=== PATIENT | male | born 1940 | race Caucasian/White ===

== ENCOUNTER 2016-03-15 08:17 | Outpatient (RCR) | payer MEDICARE, OTHER ==
[~2016-03-15 08:17] MED LIST: ASPI-860 PO; ASPI325T4 PO; CARV3.12T PO; CHOL200025 PO; MAGN250T PO; MULT-35 PO; OMG1KC PO; POTA15TA9 PO; ROSU40TA PO; VITA1CAP PO
[2016-03-15 09:21] LABS: MAGNESIUM* 2.1 mg/dL (1.6-2.3); PHOSPHORUS 2.4 mg/dL (2.4-4.9)
[2016-05-03 08:30] LABS: BASOPHILS % (AUTO) 1 % (0-2); EOSINOPHILS # (AUTO) 0.4 10^3uL; EOSINOPHILS % (AUTO) 6 % (0-4); LYMPHOCYTES # (AUTO) 1.4 X10^3; MEAN CORPUSCULAR HGB CONC 33.6 g/dL (31.0-37.0); MEAN CORPUSCULAR VOLUME 97 FL (80-100); MONOCYTES # (AUTO) 0.6 X10^3; MONOCYTES % (AUTO) 8 % (3-11); NEUTROPHILS # (AUTO) 4.5 X10^3; NEUTROPHILS % (AUTO) 64 % (51-67); PLATELET COUNT 172 10^3uL (150-450); WHITE BLOOD COUNT 6.95 10^3uL (4.0-11.0)
[2016-05-03 08:50] LABS: ALBUMIN 3.7 g/dL (3.4-5.0); ANION GAP 15.5 MEQ/L (3-15); PHOSPHORUS 3.8 mg/dL (2.4-4.9)
[2016-05-03 09:04] LABS: MEAN CORPUSCULAR HEMOGLOBIN 32.7 PG (26.0-34.0)
== END 2016-06-13 | disposition home or self-care (01) ==
LOC: LAB 08:17 → EDSTATUS 03-22 11:30
PROVIDERS: ATTEND Internal Medicine Nephrology
DX: N17.8 Other acute kidney failure (principal); N18.3 Chronic kidney disease, stage 3 (moderate); R80.8 Other proteinuria; R31.0 Gross hematuria
CPT/HCPCS: 36415; 80069; 82360; 83735; 83970; 84100; 84550; 85025

== ENCOUNTER 2016-04-05 08:03 | Outpatient (RCR) | payer MEDICARE, OTHER ==
[2016-04-05 08:21] LABS: MEAN CORPUSCULAR HGB CONC 33.2 g/dL (31.0-37.0); MEAN CORPUSCULAR VOLUME 97 FL (80-100); PLATELET COUNT 231 10^3uL (150-450); WHITE BLOOD COUNT 6.06 10^3uL (4.0-11.0)
[2016-04-05 08:27] LABS: BAND NEUTROPHILS % 0 % (0-6); EOSINOPHILS % 0 % (0-4); LYMPHOCYTES # 0.6 #; MEAN CORPUSCULAR HEMOGLOBIN 32.4 PG (26.0-34.0); MONOCYTES % 0 % (3-11); SEGMENTED NEUTROPHILS % 90 % (51-67); TOTAL CELLS COUNTED 100
[2016-04-05 08:28] LABS: RBC MORPH NORMAL (NORMAL)
[2016-04-05 08:37] LABS: ALBUMIN 3.7 g/dL (3.4-5.0); ANION GAP 20.4 MEQ/L (3-15); CALCULATED IONIZED CALCIUM 4.2 mg/dL (3.8-4.6); TOTAL PROTEIN 7.8 g/dL (6.4-8.5)
[2016-04-05 08:45] LABS: MAGNESIUM* 1.9 mg/dL (1.6-2.3)
[2016-04-12 08:48] LABS: MEAN CORPUSCULAR HEMOGLOBIN 32.8 PG (26.0-34.0); MEAN CORPUSCULAR HGB CONC 32.7 g/dL (31.0-37.0); MEAN CORPUSCULAR VOLUME 100 FL (80-100); MEAN PLATELET VOLUME 10.5 FL (6.0-9.5); PLATELET COUNT 137 10^3uL (150-450); WHITE BLOOD COUNT 5.82 10^3uL (4.0-11.0)
[2016-04-12 08:51] LABS: BAND NEUTROPHILS % 4 % (0-6); EOSINOPHILS % 0 % (0-4); LYMPHOCYTES # 1.2 #; MONOCYTES % 0 % (3-11); RBC MORPH NORMAL (NORMAL); SEGMENTED NEUTROPHILS % 74 % (51-67); TOTAL CELLS COUNTED 100
[2016-04-26 08:23] LABS: BASOPHILS % (AUTO) 1 % (0-2); EOSINOPHILS # (AUTO) 0.2 10^3uL; EOSINOPHILS % (AUTO) 2 % (0-4); MEAN CORPUSCULAR HGB CONC 33.3 g/dL (31.0-37.0); MONOCYTES # (AUTO) 0.9 X10^3; MONOCYTES % (AUTO) 10 % (3-11); NEUTROPHILS % (AUTO) 66 % (51-67); PLATELET COUNT 175 10^3uL (150-450); WHITE BLOOD COUNT 9.19 10^3uL (4.0-11.0)
[2016-04-26 08:25] LABS: MEAN CORPUSCULAR HEMOGLOBIN 32.8 PG (26.0-34.0); MEAN CORPUSCULAR VOLUME 98 FL (80-100)
[2016-04-26 09:04] LABS: ALBUMIN 3.6 g/dL (3.4-5.0); ANION GAP 17.6 MEQ/L (3-15); CALCULATED IONIZED CALCIUM 4.2 mg/dL (3.8-4.6); TOTAL PROTEIN 7.2 g/dL (6.4-8.5)
[2016-05-10 08:19] LABS: MEAN CORPUSCULAR HGB CONC 33.4 g/dL (31.0-37.0); MEAN PLATELET VOLUME 8.9 FL (6.0-9.5); PLATELET COUNT 142 10^3uL (150-450); WHITE BLOOD COUNT 4.85 10^3uL (4.0-11.0)
[2016-05-10 08:20] LABS: MEAN CORPUSCULAR HEMOGLOBIN 32.7 PG (26.0-34.0); MEAN CORPUSCULAR VOLUME 98 FL (80-100)
[2016-05-10 08:24] LABS: BAND NEUTROPHILS % 0 % (0-6); EOSINOPHILS % 4 % (0-4); LYMPHOCYTES # 1.2 #; MONOCYTES # 0.2 #; MONOCYTES % 6 % (3-11); RBC MORPH NORMAL (NORMAL); SEGMENTED NEUTROPHILS % 65 % (51-67); TOTAL CELLS COUNTED 100
[2016-05-10 08:58] LABS: ALBUMIN 3.3 g/dL (3.4-5.0); CALCULATED IONIZED CALCIUM 4.3 mg/dL (3.8-4.6); TOTAL PROTEIN 6.9 g/dL (6.4-8.5)
[2016-05-17 08:40] LABS: MEAN CORPUSCULAR VOLUME 96 FL (80-100); MEAN PLATELET VOLUME 9.1 FL (6.0-9.5); PLATELET COUNT 162 10^3uL (150-450); WHITE BLOOD COUNT 6.49 10^3uL (4.0-11.0)
[2016-05-17 08:47] LABS: ALBUMIN 3.8 g/dL (3.4-5.0); ANION GAP 17.6 MEQ/L (3-15); CALCULATED IONIZED CALCIUM 4.3 mg/dL (3.8-4.6); TOTAL PROTEIN 6.9 g/dL (6.4-8.5)
[2016-05-17 08:59] LABS: BAND NEUTROPHILS % 0 % (0-6); MEAN CORPUSCULAR HEMOGLOBIN 31.7 PG (26.0-34.0); SEGMENTED NEUTROPHILS % 68 % (51-67)
[2016-05-17 09:00] LABS: EOSINOPHILS % 4 % (0-4); LYMPHOCYTES # 1.3 #; MONOCYTES # 0.4 #; MONOCYTES % 7 % (3-11); RBC MORPH NORMAL (NORMAL); TOTAL CELLS COUNTED 100
[2016-05-24 08:27] LABS: BASOPHILS % (AUTO) 1 % (0-2); EOSINOPHILS # (AUTO) 0.4 10^3uL; EOSINOPHILS % (AUTO) 6 % (0-4); LYMPHOCYTES # (AUTO) 1.9 X10^3; MEAN CORPUSCULAR HGB CONC 32.8 g/dL (31.0-37.0); MEAN CORPUSCULAR VOLUME 97 FL (80-100); MEAN PLATELET VOLUME 9.1 FL (6.0-9.5); MONOCYTES # (AUTO) 0.6 X10^3; MONOCYTES % (AUTO) 9 % (3-11); NEUTROPHILS # (AUTO) 3.7 X10^3; NEUTROPHILS % (AUTO) 55 % (51-67); PLATELET COUNT 168 10^3uL (150-450); WHITE BLOOD COUNT 6.72 10^3uL (4.0-11.0)
[2016-05-24 08:40] LABS: MEAN CORPUSCULAR HEMOGLOBIN 31.7 PG (26.0-34.0)
[2016-05-24 08:49] LABS: ALBUMIN 3.9 g/dL (3.4-5.0); ANION GAP 17.1 MEQ/L (3-15); CALCULATED IONIZED CALCIUM 4.2 mg/dL (3.8-4.6); TOTAL PROTEIN 7.1 g/dL (6.4-8.5)
[2016-05-31 08:24] LABS: BASOPHILS % (AUTO) 1 % (0-2); EOSINOPHILS # (AUTO) 0.3 10^3uL; EOSINOPHILS % (AUTO) 4 % (0-4); LYMPHOCYTES # (AUTO) 3.2 X10^3; MEAN CORPUSCULAR HEMOGLOBIN 31.2 PG (26.0-34.0); MEAN CORPUSCULAR HGB CONC 32.3 g/dL (31.0-37.0); MEAN CORPUSCULAR VOLUME 97 FL (80-100); MONOCYTES # (AUTO) 1.2 X10^3; MONOCYTES % (AUTO) 13 % (3-11); NEUTROPHILS # (AUTO) 3.8 X10^3; NEUTROPHILS % (AUTO) 45 % (51-67); PLATELET COUNT 140 10^3uL (150-450); WHITE BLOOD COUNT 8.57 10^3uL (4.0-11.0)
[2016-05-31 08:37] LABS: ANION GAP 20.4 MEQ/L (3-15); CALCULATED IONIZED CALCIUM 4.2 mg/dL (3.8-4.6); TOTAL PROTEIN 7.3 g/dL (6.4-8.5)
[2016-06-07 08:36] LABS: BASOPHILS % (AUTO) 0 % (0-2); EOSINOPHILS # (AUTO) 0.4 10^3uL; EOSINOPHILS % (AUTO) 5 % (0-4); LYMPHOCYTES # (AUTO) 2.7 X10^3; MEAN CORPUSCULAR HEMOGLOBIN 31.1 PG (26.0-34.0); MEAN CORPUSCULAR VOLUME 94 FL (80-100); MEAN PLATELET VOLUME 9.3 FL (6.0-9.5); MONOCYTES # (AUTO) 0.6 X10^3; MONOCYTES % (AUTO) 9 % (3-11); NEUTROPHILS # (AUTO) 3.6 X10^3; NEUTROPHILS % (AUTO) 49 % (51-67); PLATELET COUNT 176 10^3uL (150-450); WHITE BLOOD COUNT 7.29 10^3uL (4.0-11.0)
[2016-06-07 09:11] LABS: CALCULATED IONIZED CALCIUM 4.1 mg/dL (3.8-4.6); TOTAL PROTEIN 7.5 g/dL (6.4-8.5)
[2016-06-07 09:25] LABS: ANION GAP 18.5 MEQ/L (3-15)
[2016-06-14 08:20] LABS: BASOPHILS % (AUTO) 1 % (0-2); EOSINOPHILS # (AUTO) 0.3 10^3uL; EOSINOPHILS % (AUTO) 4 % (0-4); LYMPHOCYTES # (AUTO) 3.1 X10^3; MEAN CORPUSCULAR HEMOGLOBIN 30.9 PG (26.0-34.0); MEAN CORPUSCULAR VOLUME 94 FL (80-100); MEAN PLATELET VOLUME 9.5 FL (6.0-9.5); MONOCYTES # (AUTO) 0.9 X10^3; MONOCYTES % (AUTO) 11 % (3-11); NEUTROPHILS # (AUTO) 4.3 X10^3; NEUTROPHILS % (AUTO) 50 % (51-67); PLATELET COUNT 206 10^3uL (150-450); WHITE BLOOD COUNT 8.72 10^3uL (4.0-11.0)
[2016-06-14 08:27] LABS: ALBUMIN 4.1 g/dL (3.4-5.0); ANION GAP 19.5 MEQ/L (3-15); CALCULATED IONIZED CALCIUM 4.3 mg/dL (3.8-4.6); TOTAL PROTEIN 7.5 g/dL (6.4-8.5)
[2016-06-21 08:08] LABS: BASOPHILS % (AUTO) 1 % (0-2); EOSINOPHILS # (AUTO) 0.3 10^3uL; EOSINOPHILS % (AUTO) 4 % (0-4); MEAN CORPUSCULAR HEMOGLOBIN 30.6 PG (26.0-34.0); MEAN CORPUSCULAR HGB CONC 32.8 g/dL (31.0-37.0); MEAN CORPUSCULAR VOLUME 94 FL (80-100); MEAN PLATELET VOLUME 9.4 FL (6.0-9.5); MONOCYTES # (AUTO) 0.8 X10^3; MONOCYTES % (AUTO) 10 % (3-11); NEUTROPHILS # (AUTO) 4.6 X10^3; NEUTROPHILS % (AUTO) 59 % (51-67); PLATELET COUNT 173 10^3uL (150-450); WHITE BLOOD COUNT 7.72 10^3uL (4.0-11.0)
[2016-06-21 08:56] LABS: CALCULATED IONIZED CALCIUM 4.2 mg/dL (3.8-4.6); TOTAL PROTEIN 7.7 g/dL (6.4-8.5)
== END 2016-07-04 | disposition home or self-care (01) ==
LOC: LAB 08:03
PROVIDERS: ATTEND Internal Medicine Hematology & Oncology
DX: C65.2 Malignant neoplasm of left renal pelvis (principal); C78.00 Secondary malignant neoplasm of unspecified lung
CPT/HCPCS: 36415; 80053; 82378; 83615; 83735; 85007; 85025; 85027

== ENCOUNTER 2016-06-28 08:14 | Outpatient (RCR) | payer MEDICARE, OTHER ==
[2016-06-28 09:02] LABS: BASOPHILS % (AUTO) 1 % (0-2); EOSINOPHILS # (AUTO) 0.3 10^3uL; EOSINOPHILS % (AUTO) 4 % (0-4); LYMPHOCYTES # (AUTO) 1.5 X10^3; MEAN CORPUSCULAR HEMOGLOBIN 30.6 PG (26.0-34.0); MEAN CORPUSCULAR HGB CONC 33.3 g/dL (31.0-37.0); MEAN CORPUSCULAR VOLUME 92 FL (80-100); MEAN PLATELET VOLUME 9.9 FL (6.0-9.5); MONOCYTES # (AUTO) 0.6 X10^3; MONOCYTES % (AUTO) 10 % (3-11); NEUTROPHILS # (AUTO) 3.9 X10^3; NEUTROPHILS % (AUTO) 61 % (51-67); PLATELET COUNT 202 10^3uL (150-450); WHITE BLOOD COUNT 6.38 10^3uL (4.0-11.0)
[2016-06-28 09:09] LABS: ALBUMIN 3.9 g/dL (3.4-5.0); ANION GAP 20.4 MEQ/L (3-15); CALCULATED IONIZED CALCIUM 4.3 mg/dL (3.8-4.6); TOTAL PROTEIN 7.3 g/dL (6.4-8.5)
[2016-07-05 08:06] LABS: BASOPHILS % (AUTO) 1 % (0-2); EOSINOPHILS # (AUTO) 0.3 10^3uL; EOSINOPHILS % (AUTO) 4 % (0-4); LYMPHOCYTES # (AUTO) 1.5 X10^3; MEAN CORPUSCULAR HEMOGLOBIN 30.7 PG (26.0-34.0); MEAN CORPUSCULAR HGB CONC 32.9 g/dL (31.0-37.0); MEAN CORPUSCULAR VOLUME 93 FL (80-100); MEAN PLATELET VOLUME 9.1 FL (6.0-9.5); MONOCYTES # (AUTO) 0.8 X10^3; MONOCYTES % (AUTO) 11 % (3-11); NEUTROPHILS # (AUTO) 4.8 X10^3; NEUTROPHILS % (AUTO) 64 % (51-67); PLATELET COUNT 171 10^3uL (150-450); WHITE BLOOD COUNT 7.47 10^3uL (4.0-11.0)
[2016-07-05 08:22] LABS: ALBUMIN 3.8 g/dL (3.4-5.0); ANION GAP 16.8 MEQ/L (3-15); CALCULATED IONIZED CALCIUM 4.2 mg/dL (3.8-4.6); TOTAL PROTEIN 7.3 g/dL (6.4-8.5)
[2016-07-12 08:48] LABS: BASOPHILS % (AUTO) 1 % (0-2); EOSINOPHILS # (AUTO) 0.3 10^3uL; EOSINOPHILS % (AUTO) 4 % (0-4); LYMPHOCYTES # (AUTO) 1.6 X10^3; MEAN CORPUSCULAR HEMOGLOBIN 30.7 PG (26.0-34.0); MEAN CORPUSCULAR HGB CONC 32.9 g/dL (31.0-37.0); MEAN CORPUSCULAR VOLUME 93 FL (80-100); MONOCYTES # (AUTO) 0.8 X10^3; MONOCYTES % (AUTO) 11 % (3-11); NEUTROPHILS # (AUTO) 4.6 X10^3; NEUTROPHILS % (AUTO) 62 % (51-67); PLATELET COUNT 162 10^3uL (150-450); WHITE BLOOD COUNT 7.33 10^3uL (4.0-11.0)
[2016-07-12 09:20] LABS: ALBUMIN 3.2 g/dL (3.4-5.0); ANION GAP 17.2 MEQ/L (3-15); CALCULATED IONIZED CALCIUM 4.3 mg/dL (3.8-4.6); TOTAL PROTEIN 6.2 g/dL (6.4-8.5)
[2016-07-19 08:28] LABS: BASOPHILS % (AUTO) 1 % (0-2); EOSINOPHILS # (AUTO) 0.4 10^3uL; EOSINOPHILS % (AUTO) 5 % (0-4); LYMPHOCYTES # (AUTO) 1.4 X10^3; MEAN CORPUSCULAR HEMOGLOBIN 30.9 PG (26.0-34.0); MEAN CORPUSCULAR HGB CONC 33.5 g/dL (31.0-37.0); MEAN CORPUSCULAR VOLUME 92 FL (80-100); MEAN PLATELET VOLUME 9.2 FL (6.0-9.5); MONOCYTES % (AUTO) 13 % (3-11); NEUTROPHILS # (AUTO) 4.7 X10^3; NEUTROPHILS % (AUTO) 63 % (51-67); PLATELET COUNT 208 10^3uL (150-450); WHITE BLOOD COUNT 7.47 10^3uL (4.0-11.0)
[2016-07-19 08:39] LABS: ALBUMIN 3.6 g/dL (3.4-5.0); ANION GAP 16.7 MEQ/L (3-15); CALCULATED IONIZED CALCIUM 4.1 mg/dL (3.8-4.6); TOTAL PROTEIN 7.1 g/dL (6.4-8.5)
[2016-07-26 08:36] LABS: BASOPHILS % (AUTO) 1 % (0-2); EOSINOPHILS # (AUTO) 0.4 10^3uL; EOSINOPHILS % (AUTO) 6 % (0-4); LYMPHOCYTES # (AUTO) 1.2 X10^3; MEAN CORPUSCULAR HEMOGLOBIN 30.6 PG (26.0-34.0); MEAN CORPUSCULAR HGB CONC 33.6 g/dL (31.0-37.0); MEAN CORPUSCULAR VOLUME 91 FL (80-100); MEAN PLATELET VOLUME 9.2 FL (6.0-9.5); MONOCYTES # (AUTO) 0.9 X10^3; MONOCYTES % (AUTO) 12 % (3-11); NEUTROPHILS # (AUTO) 4.8 X10^3; NEUTROPHILS % (AUTO) 65 % (51-67); PLATELET COUNT 231 10^3uL (150-450); WHITE BLOOD COUNT 7.37 10^3uL (4.0-11.0)
[2016-07-26 09:09] LABS: ALBUMIN 3.3 g/dL (3.4-5.0); ANION GAP 17.2 MEQ/L (3-15); CALCULATED IONIZED CALCIUM 4.4 mg/dL (3.8-4.6); TOTAL PROTEIN 6.4 g/dL (6.4-8.5)
[2016-08-02 08:33] LABS: BASOPHILS % (AUTO) 1 % (0-2); EOSINOPHILS # (AUTO) 0.4 10^3uL; EOSINOPHILS % (AUTO) 6 % (0-4); LYMPHOCYTES # (AUTO) 1.4 X10^3; MEAN CORPUSCULAR HGB CONC 33.2 g/dL (31.0-37.0); MEAN CORPUSCULAR VOLUME 90 FL (80-100); MEAN PLATELET VOLUME 8.8 FL (6.0-9.5); MONOCYTES % (AUTO) 14 % (3-11); NEUTROPHILS % (AUTO) 59 % (51-67); PLATELET COUNT 206 10^3uL (150-450)
[2016-08-02 08:46] LABS: ALBUMIN 3.6 g/dL (3.4-5.0); ANION GAP 16.1 MEQ/L (3-15); CALCULATED IONIZED CALCIUM 4.2 mg/dL (3.8-4.6); TOTAL PROTEIN 7.2 g/dL (6.4-8.5)
[2016-08-09 08:08] LABS: BASOPHILS % (AUTO) 1 % (0-2); EOSINOPHILS # (AUTO) 0.6 10^3uL; EOSINOPHILS % (AUTO) 5 % (0-4); LYMPHOCYTES # (AUTO) 2.2 X10^3; MEAN CORPUSCULAR HEMOGLOBIN 30.1 PG (26.0-34.0); MEAN CORPUSCULAR HGB CONC 33.3 g/dL (31.0-37.0); MEAN CORPUSCULAR VOLUME 90 FL (80-100); MEAN PLATELET VOLUME 9.5 FL (6.0-9.5); MONOCYTES # (AUTO) 1.1 X10^3; MONOCYTES % (AUTO) 11 % (3-11); NEUTROPHILS # (AUTO) 6.2 X10^3; NEUTROPHILS % (AUTO) 60 % (51-67); PLATELET COUNT 193 10^3uL (150-450)
[2016-08-09 08:41] LABS: ALBUMIN 3.4 g/dL (3.4-5.0); ANION GAP 17.9 MEQ/L (3-15); CALCULATED IONIZED CALCIUM 4.4 mg/dL (3.8-4.6); TOTAL PROTEIN 6.7 g/dL (6.4-8.5)
[2016-08-13] MEDS ORDERED: OMEP40CA36 PO (11:25)
[2016-08-13] MEDS ORDERED: METO-270 PO (11:25)
[2016-08-13] MEDS ORDERED: FRSM20T PO (11:25)
[2016-08-13] MEDS ORDERED: AMIO200T2 PO (11:25)
[2016-08-13] MEDS ORDERED: MGX400T PO (11:25)
[2016-08-13] MEDS ORDERED: PREG50C PO (11:25)
[2016-08-13] MEDS ORDERED: LISI2.5T PO (11:25)
[2016-08-13] MEDS ORDERED: APIX5TAB PO (11:25)
[2016-08-13] MEDS ORDERED: METO25TA2 PO (16:04)
[2016-08-13] MEDS ORDERED: CYAN10006 PO (16:04)
[2016-08-13] MEDS ORDERED: NFLYR75C PO (16:04)
[2016-08-13] MEDS ORDERED: MULT-517 PO (16:59)
[2016-08-23 08:11] LABS: BASOPHILS % (AUTO) 1 % (0-2); EOSINOPHILS # (AUTO) 0.6 10^3uL; EOSINOPHILS % (AUTO) 7 % (0-4); LYMPHOCYTES # (AUTO) 1.7 X10^3; MEAN CORPUSCULAR HEMOGLOBIN 28.6 PG (26.0-34.0); MEAN CORPUSCULAR HGB CONC 31.9 g/dL (31.0-37.0); MEAN CORPUSCULAR VOLUME 90 FL (80-100); MEAN PLATELET VOLUME 8.9 FL (6.0-9.5); MONOCYTES # (AUTO) 0.9 X10^3; MONOCYTES % (AUTO) 10 % (3-11); NEUTROPHILS # (AUTO) 5.6 X10^3; NEUTROPHILS % (AUTO) 62 % (51-67); PLATELET COUNT 228 10^3uL (150-450); WHITE BLOOD COUNT 8.94 10^3uL (4.0-11.0)
[2016-08-23 08:22] LABS: ALBUMIN 3.8 g/dL (3.4-5.0); ANION GAP 17.8 MEQ/L (3-15); CALCULATED IONIZED CALCIUM 4.2 mg/dL (3.8-4.6)
[2016-08-30 08:10] LABS: BASOPHILS % (AUTO) 1 % (0-2); EOSINOPHILS # (AUTO) 0.5 10^3uL; EOSINOPHILS % (AUTO) 8 % (0-4); LYMPHOCYTES # (AUTO) 1.5 X10^3; MEAN CORPUSCULAR HEMOGLOBIN 28.2 PG (26.0-34.0); MEAN CORPUSCULAR HGB CONC 31.6 g/dL (31.0-37.0); MEAN CORPUSCULAR VOLUME 89 FL (80-100); MEAN PLATELET VOLUME 8.9 FL (6.0-9.5); MONOCYTES # (AUTO) 0.8 X10^3; MONOCYTES % (AUTO) 12 % (3-11); NEUTROPHILS # (AUTO) 3.9 X10^3; NEUTROPHILS % (AUTO) 57 % (51-67); PLATELET COUNT 183 10^3uL (150-450); WHITE BLOOD COUNT 6.86 10^3uL (4.0-11.0)
[2016-08-30 08:38] LABS: ALBUMIN 3.3 g/dL (3.4-5.0); ANION GAP 16.7 MEQ/L (3-15); CALCULATED IONIZED CALCIUM 4.2 mg/dL (3.8-4.6); TOTAL PROTEIN 7.1 g/dL (6.4-8.5)
[2016-09-06 08:16] LABS: MEAN CORPUSCULAR HEMOGLOBIN 28.3 PG (26.0-34.0); MEAN CORPUSCULAR HGB CONC 31.8 g/dL (31.0-37.0); MEAN CORPUSCULAR VOLUME 89 FL (80-100); MEAN PLATELET VOLUME 9.2 FL (6.0-9.5); PLATELET COUNT 203 10^3uL (150-450)
[2016-09-06 08:24] LABS: ALBUMIN 3.7 g/dL (3.4-5.0); ANION GAP 19.1 MEQ/L (3-15); BAND NEUTROPHILS % 3 % (0-6); CALCULATED IONIZED CALCIUM 4.2 mg/dL (3.8-4.6); EOSINOPHILS % 4 % (0-4); LYMPHOCYTES # 1.7 #; MONOCYTES # 0.8 #; MONOCYTES % 12 % (3-11); RBC MORPH NORMAL (NORMAL); SEGMENTED NEUTROPHILS % 58 % (51-67); TOTAL CELLS COUNTED 100
[2016-09-13 08:28] LABS: MEAN CORPUSCULAR HEMOGLOBIN 28.5 PG (26.0-34.0); MEAN CORPUSCULAR HGB CONC 32.6 g/dL (31.0-37.0); MEAN CORPUSCULAR VOLUME 88 FL (80-100); MEAN PLATELET VOLUME 9.8 FL (6.0-9.5); PLATELET COUNT 79 10^3uL (150-450); WHITE BLOOD COUNT 2.15 10^3uL (4.0-11.0)
[2016-09-13 08:31] LABS: BAND NEUTROPHILS % 2 % (0-6); EOSINOPHILS % 4 % (0-4); MONOCYTES % 0 % (3-11); SEGMENTED NEUTROPHILS % 45 % (51-67); TOTAL CELLS COUNTED 100
[2016-09-13 08:33] LABS: RBC MORPH NORMAL (NORMAL)
[2016-09-13 08:36] LABS: ALBUMIN 3.4 g/dL (3.4-5.0); ANION GAP 21.6 MEQ/L (3-15); TOTAL PROTEIN 7.3 g/dL (6.4-8.5)
== END 2016-09-26 | disposition home or self-care (01) ==
LOC: LAB 08:14
PROVIDERS: ATTEND Internal Medicine Hematology & Oncology
DX: C65.2 Malignant neoplasm of left renal pelvis (principal)
CPT/HCPCS: 36415; 80053; 83615; 85007; 85025; 85027

== ENCOUNTER 2016-08-13 10:13 | Inpatient (IN) | payer MEDICARE, OTHER ==
[~2016-08-13] VITALS: Ht 185.4 cm; Wt 93.2 kg
[2016-08-13 11:17] LABS: BASOPHILS % (AUTO) 1 % (0-2); EOSINOPHILS # (AUTO) 0.3 10^3uL; EOSINOPHILS % (AUTO) 4 % (0-4); LYMPHOCYTES # (AUTO) 0.9 X10^3; MEAN CORPUSCULAR HGB CONC 33.5 g/dL (31.0-37.0); MEAN CORPUSCULAR VOLUME 90 FL (80-100); MEAN PLATELET VOLUME 9.4 FL (6.0-9.5); MONOCYTES # (AUTO) 0.9 X10^3; MONOCYTES % (AUTO) 12 % (3-11); NEUTROPHILS # (AUTO) 5.4 X10^3; NEUTROPHILS % (AUTO) 70 % (51-67); PLATELET COUNT 180 10^3uL (150-450); WHITE BLOOD COUNT 7.66 10^3uL (4.0-11.0)
[2016-08-13 11:24] LABS: RBC,URINE TNTC /HPF; URINE CENTRIFUGED VOLUME 12 mL
[2016-08-13 12:49] LABS: ALBUMIN 3.6 g/dL (3.4-5.0); ANION GAP 16.7 MEQ/L (3-15); CALCULATED IONIZED CALCIUM 4.2 mg/dL (3.8-4.6); TOTAL PROTEIN 7.3 g/dL (6.4-8.5)
[2016-08-13 15:03] VITALS: BP 91/55
[2016-08-13] MEDS ORDERED: PROMETHAZINE HCL INJ 12.5 MG in SODIUM CHLORIDE 25 ML IV PRN (15:50)
[2016-08-13] MEDS ORDERED: morphine INJ 4 MG/ML 1 ML SYRINGE IV PRN (15:50)
[2016-08-13] MEDS ORDERED: DOCUSATE SODIUM 100 MG (COLACE) CAP PO PRN (15:50)
[2016-08-13] MEDS ORDERED: ONDANSETRON 2 MG/ML (Z0FRAN) 2 ML VIAL IV PRN (15:50)
[2016-08-13] MEDS ORDERED: MAGNESIUM HYDROXIDE 80MG/ML (MILK OF MAGNESIA) 30 ML UDC PO PRN (15:50)
[2016-08-13] MEDS ORDERED: CALCIUM CARBONATE CHEWABLE 300 MG (TUMS) TABLET PO PRN (15:50)
[2016-08-13] MEDS ORDERED: MAG HYDROX/AL HYDROX/SIMETH 200-200-20/5 ML (MAG-AL PLUS) 30 ML UDC PO PRN (15:50)
[2016-08-13] MEDS ORDERED: POLYETHYLENE GLYCOL 17 GM (MIRALAX) PACKET PO PRN (15:50)
[2016-08-13] MEDS ORDERED: ONDANSETRON 4 MG (ZOFRAN) ORAL DISSOLVE TAB PO PRN (15:50)
[2016-08-13 16:18] VITALS: BP 91/55
[2016-08-13] MEDS ORDERED: NS FLUSH 3 ML PRN IV (17:00)
[2016-08-13] MEDS ORDERED: HALL'S COUGH DROPS MM PRN (17:50)
[2016-08-13] MEDS: meTOprolol TARTRATE 25 MG (LOPRESSOR) TABLET PO SCH (18:03)
[2016-08-13 19:26] VITALS: BP 108/63
[2016-08-13] MEDS: PREGABALIN 75 MG PO SCH (20:12)
[2016-08-13] MEDS: AMIODARONE 200 MG (CORDARONE) TAB PO SCH (20:12)
[2016-08-13] MEDS: ATORVASTATIN 40 MG (LIPITOR) TABLET PO SCH (20:12)
[2016-08-13] MEDS ORDERED: CARVEDILOL 3.125 MG (COREG) TABLET PO SCH (21:00)
[2016-08-13] MEDS: ACETAMINOPHEN 325 MG TAB (TYLENOL) PO PRN (23:26)
[2016-08-13 23:44] VITALS: BP 110/60
[2016-08-14] VITALS (7 sets, daily range): BP systolic 83–133; BP diastolic 44–71
[2016-08-14 06:14] LABS: MEAN CORPUSCULAR HEMOGLOBIN 29.8 PG (26.0-34.0); MEAN CORPUSCULAR HGB CONC 33.3 g/dL (31.0-37.0); MEAN CORPUSCULAR VOLUME 89 FL (80-100); MEAN PLATELET VOLUME 9.9 FL (6.0-9.5); PLATELET COUNT 167 10^3uL (150-450); WHITE BLOOD COUNT 6.79 10^3uL (4.0-11.0)
[2016-08-14 06:48] LABS: ALBUMIN 2.6 g/dL (3.4-5.0); ANION GAP 13.7 MEQ/L (3-15); CALCULATED IONIZED CALCIUM 4.6 mg/dL (3.8-4.6); TOTAL PROTEIN 5.4 g/dL (6.4-8.5)
[2016-08-14 07:31] LABS: BAND NEUTROPHILS % 1 % (0-6); EOSINOPHILS % 5 % (0-4); LYMPHOCYTES # 0.9 #; MONOCYTES # 0.8 #; MONOCYTES % 13 % (3-11); SEGMENTED NEUTROPHILS % 67 % (51-67); TOTAL CELLS COUNTED 100
[2016-08-14 07:32] LABS: RBC MORPH NORMAL (NORMAL)
[2016-08-14] MEDS ORDERED: NON-FORMULARY MEDICATION 1 EA EA (Cholecalciferol (Vitamin D3) (Vitamin D3) 2,000 UNIT) PO SCH (09:00)
[2016-08-14] MEDS ORDERED: FUROSEMIDE 100 MG/10 ML (LASIX) VIAL IV ONE ×2 (10:00→11:14)
[2016-08-14] MEDS: OMEGA-3 ACID ETHYL ESTERS 1 GM (LOVAZA) CAPSULE PO SCH (10:39)
[2016-08-14] MEDS: MAGNESIUM OXIDE 400 MG (MAG-OX) TAB PO SCH (10:39)
[2016-08-14] MEDS: AMIODARONE 200 MG (CORDARONE) TAB PO SCH ×2 (10:40→20:13)
[2016-08-14] MEDS: meTOprolol TARTRATE 25 MG (LOPRESSOR) TABLET PO SCH ×2 (10:40→18:17)
[2016-08-14] MEDS: PREGABALIN 75 MG PO SCH ×2 (10:40→20:13)
[2016-08-14] MEDS ORDERED: SODIUM CHLORIDE 100 ML ONE (12:13)
[2016-08-14] MEDS: cefTRIAXone SODIUM 1,000 MG in SODIUM CHLORIDE 50 ML IV SCH (12:22)
[2016-08-14] MEDS: AZITHROMYCIN VIAL 500 MG in SODIUM CHLORIDE 250 ML IV SCH (13:03)
[2016-08-14] MEDS: ATORVASTATIN 40 MG (LIPITOR) TABLET PO SCH (20:13)
[2016-08-14] MEDS: guaiFENesin ER 600 MG (MUCINEX) TAB PO SCH (20:13)
[2016-08-15 04:04] VITALS: BP 94/52
[2016-08-15 05:59] LABS: BASOPHILS % (AUTO) 0 % (0-2); EOSINOPHILS # (AUTO) 0.4 10^3uL; EOSINOPHILS % (AUTO) 5 % (0-4); LYMPHOCYTES # (AUTO) 1.1 X10^3; MEAN CORPUSCULAR HEMOGLOBIN 29.5 PG (26.0-34.0); MEAN CORPUSCULAR HGB CONC 33.3 g/dL (31.0-37.0); MEAN CORPUSCULAR VOLUME 88 FL (80-100); MEAN PLATELET VOLUME 9.8 FL (6.0-9.5); MONOCYTES # (AUTO) 0.9 X10^3; MONOCYTES % (AUTO) 12 % (3-11); NEUTROPHILS # (AUTO) 5.1 X10^3; NEUTROPHILS % (AUTO) 67 % (51-67); PLATELET COUNT 169 10^3uL (150-450); WHITE BLOOD COUNT 7.59 10^3uL (4.0-11.0)
[2016-08-15 06:25] LABS: ALBUMIN 3.1 g/dL (3.4-5.0); ANION GAP 13.8 MEQ/L (3-15); PHOSPHORUS 4.1 mg/dL (2.4-4.9)
[2016-08-15 07:49] VITALS: BP 88/50
[2016-08-15] MEDS: meTOprolol TARTRATE 25 MG (LOPRESSOR) TABLET PO SCH ×2 (08:00→08:22)
[2016-08-15] MEDS: guaiFENesin ER 600 MG (MUCINEX) TAB PO SCH ×2 (08:22→20:00)
[2016-08-15] MEDS: PREGABALIN 75 MG PO SCH ×2 (08:22→20:00)
[2016-08-15] MEDS: OMEGA-3 ACID ETHYL ESTERS 1 GM (LOVAZA) CAPSULE PO SCH (08:22)
[2016-08-15] MEDS: MAGNESIUM OXIDE 400 MG (MAG-OX) TAB PO SCH (08:22)
[2016-08-15] MEDS: AMIODARONE 200 MG (CORDARONE) TAB PO SCH ×2 (08:22→20:00)
[2016-08-15] MEDS: NS FLUSH 10 ML PRN IV (10:02)
[2016-08-15] MEDS: cefTRIAXone SODIUM 1,000 MG in SODIUM CHLORIDE 50 ML IV SCH (10:02)
[2016-08-15] MEDS: AZITHROMYCIN VIAL 500 MG in SODIUM CHLORIDE 250 ML IV SCH (10:37)
[2016-08-15] MEDS ORDERED: FUROSEMIDE 100 MG/10 ML (LASIX) VIAL IV ONE (11:05)
[2016-08-15 11:30] VITALS: BP 86/55
[2016-08-15 15:47] VITALS: BP 90/52
[2016-08-15 19:31] VITALS: BP 96/41
[2016-08-15] MEDS: ATORVASTATIN 40 MG (LIPITOR) TABLET PO SCH (20:00)
[2016-08-15 23:43] VITALS: BP 97/43
[2016-08-15] MEDS: ACETAMINOPHEN 325 MG TAB (TYLENOL) PO PRN (23:44)
[2016-08-16 04:21] VITALS: BP 93/53
[2016-08-16 06:22] LABS: MEAN CORPUSCULAR HEMOGLOBIN 29.3 PG (26.0-34.0); MEAN CORPUSCULAR HGB CONC 33.2 g/dL (31.0-37.0); MEAN CORPUSCULAR VOLUME 88 FL (80-100); MONOCYTES % (AUTO) 13 % (3-11); NEUTROPHILS % (AUTO) 61 % (51-67); PLATELET COUNT 190 10^3uL (150-450); WHITE BLOOD COUNT 7.45 10^3uL (4.0-11.0)
[2016-08-16 06:23] LABS: BASOPHILS % (AUTO) 1 % (0-2); EOSINOPHILS # (AUTO) 0.5 10^3uL; EOSINOPHILS % (AUTO) 6 % (0-4); LYMPHOCYTES # (AUTO) 1.3 X10^3; NEUTROPHILS # (AUTO) 4.6 X10^3
[2016-08-16 06:48] LABS: ALBUMIN 3.3 g/dL (3.4-5.0); ANION GAP 14.7 MEQ/L (3-15); MAGNESIUM* 1.8 mg/dL (1.6-2.3); PHOSPHORUS 4.2 mg/dL (2.4-4.9)
[2016-08-16 07:56] VITALS: BP 94/56
[2016-08-16] MEDS: PREGABALIN 75 MG PO SCH (08:32)
[2016-08-16] MEDS: MAGNESIUM OXIDE 400 MG (MAG-OX) TAB PO SCH (08:32)
[2016-08-16] MEDS: AMIODARONE 200 MG (CORDARONE) TAB PO SCH (08:32)
[2016-08-16] MEDS: guaiFENesin ER 600 MG (MUCINEX) TAB PO SCH (08:32)
[2016-08-16] MEDS: OMEGA-3 ACID ETHYL ESTERS 1 GM (LOVAZA) CAPSULE PO SCH (08:32)
[2016-08-16] MEDS: NS FLUSH 10 ML PRN IV ×2 (09:41→11:06)
[2016-08-16] MEDS: cefTRIAXone SODIUM 1,000 MG in SODIUM CHLORIDE 50 ML IV SCH (09:41)
[2016-08-16] MEDS: AZITHROMYCIN VIAL 500 MG in SODIUM CHLORIDE 250 ML IV SCH (11:06)
[2016-08-16 11:28] VITALS: BP 94/60
[2016-08-16 15:22] VITALS: BP 106/61
== END 2016-08-16 16:42 | disposition home or self-care (01) | DRG 686 ==
LOC: ED 10:14 → INTOOBSV 14:23 → UNDOADMOB 14:23 → MED/SURG 14:23 → OBSVTOIN 14:23
PROVIDERS: ADMIT Internal Medicine; ATTEND Internal Medicine
DX: C65.2 Malignant neoplasm of left renal pelvis (principal); J18.9 Pneumonia, unspecified organism; C78.02 Secondary malignant neoplasm of left lung; N17.9 Acute kidney failure, unspecified; D62 Acute posthemorrhagic anemia; I50.22 Chronic systolic (congestive) heart failure; D68.32 Hemorrhagic disorder due to extrinsic circulating anticoagulants; C78.01 Secondary malignant neoplasm of right lung; I48.91 Unspecified atrial fibrillation; R31.0 Gross hematuria; I25.10 Atherosclerotic heart disease of native coronary artery without angina pectoris; N50.9 Disorder of male genital organs, unspecified; T45.525A Adverse effect of antithrombotic drugs, initial encounter; I25.2 Old myocardial infarction; Z79.02 Long term (current) use of antithrombotics/antiplatelets; Z86.74 Personal history of sudden cardiac arrest; Z95.1 Presence of aortocoronary bypass graft; Z95.810 Presence of automatic (implantable) cardiac defibrillator
CPT/HCPCS: 36415; 71020; 76870; 78582; 80053; 80069; 81015; 83615; 83735; 85014; 85018; 85025; 85379; 85610; 85730; 86140; 86850; 86900; 86901; 87040; 94760; 99283; 99284

== ENCOUNTER → 2016-08-27 | Outpatient (CLI) | payer MEDICARE, OTHER | LOC: RAD 08:56 | PROVIDERS: ATTEND Internal Medicine Hematology & Oncology | DX: Z79.899 Other long term (current) drug therapy (principal) | CPT/HCPCS: 93306 ==

== ENCOUNTER → 2016-09-13 | Outpatient (CLI) | payer MEDICARE, OTHER ==
[~2016-09-13] MED LIST changes: +AMIO200T2 PO; +APIX5TAB PO; +CYAN10006 PO; +FRSM20T PO; +LISI2.5T PO; +METO-270 PO; +METO25TA2 PO; +MGX400T PO; +MULT-517 PO; +NFLYR75C PO; +OMEP40CA36 PO; +PREG50C PO
== END ==
LOC: EMS 15:40
PROVIDERS: ATTEND Internal Medicine Hematology & Oncology
DX: R06.02 Shortness of breath (principal)

== ENCOUNTER → 2016-09-13 | Outpatient (REF) | payer MEDICARE, OTHER | LOC: LAB 13:06 | PROVIDERS: ATTEND Family Medicine | DX: C78.02 Secondary malignant neoplasm of left lung (principal); C78.01 Secondary malignant neoplasm of right lung; R09.02 Hypoxemia; R31.9 Hematuria, unspecified; E78.5 Hyperlipidemia, unspecified; Z79.899 Other long term (current) drug therapy | CPT/HCPCS: 80061; 83880 ==

== ENCOUNTER → 2016-09-17 | Outpatient (CLI) | payer MEDICARE, OTHER | LOC: EMS 07:25 ==